=== PATIENT | female | born 1985 | race Asian ===

== ENCOUNTER 2024-10-17 09:44 | Outpatient (AMB) | payer BC, SELFPAY ==
--- NOTE | 2024-10-17 09:50 | GYNCLNT_ITS ---
Vital Signs 10/17/24 09:51 Height 1.55 m Height Method Stated Weight 70.023 kg Weight Measurement Method Standing Scale BMI 29.1 BP 118/79 Blood Pressure Source Automatic Cuff Blood Pressure Location Left Upper Arm Position Sitting Respiration 12 Pulse 65 Pulse Source Monitor Temp 97.5 F Temp Source Oral Pulse Oximetry (%) 98 Oxygen Delivery Method Room Air Allergies/Home Meds Allergies & Medications Allergies acetaminophen Adverse Reaction (Intermediate, Verified 10/17/24 09:53) HIVES hydrocodone Adverse Reaction (Intermediate, Verified 10/17/24 09:53) HIVES Penicillins Adverse Reaction (Intermediate, Verified 10/17/24 09:53) Swelling Medication Reconciliation No Known Home Medications 10/17/24 [History Confirmed 10/17/24] Intake Visit Data Collection New Patient or Established: Established Patient (seen at [facility] within 3 years) Reason for Visit:: Well woman exam Seen by Clinical Staff ONLY (RN/MA): No Linen Tech Required: No Do You Feel Safe at Home: Yes Authorities Contacted: N/A PCP or OBGYN visit in last 3 months: No Hx Now: No Are you currently on any form of Control: Yes Pain Present Currently: No Pain Scale Used: Howard-Jean/Numerical Pain scale:: 0 Smoking Status Smoking Status: Never smoker Questionnaires Covid-19 Vaccine Questionnaire Has patient been vacinated for Covid-19 Have you been vacinated for Covid-19: Yes Date of last Covid Vaccine or Booster?: 07/22/20 PHQ-9 PHQ-2 Over the last 2 weeks, how often have you been bothered by any of the following problems? 1. Little interest or pleasure in doing things: not at all 2. Feeling down, depressed, or hopeless: not at all Total score: 0 Depression screen completed yes Social History Living Situation History Marital Status: Lives With: Family Housing: House Tobacco History Smoking Status: Never smoker Alcohol History Alcohol Intake: Never Substance Use History Substance Use: no Domestic Abuse History Do You Feel Safe at Home: Yes Past Medical History Past Medical History Have you ever been diagnosed with any of the following: Neurological Problems Cerebrovascular Accident (CVA): No Transient Ischemic Attacks (TIA): No Cardiology Problems Myocardial Infarction: No Cardiac Arrhythmia: No Respiratory Problems Chronic Obstructive Pulmonary Disease (COPD): No Asthma: No Stomache/Intestinal Problems Liver Cancer: No Hepatitis: No Genital/Urinary Problems Chronic Kidney Disease: No Renal Disease: No Kidney Stones: No Reproductive Problems Breast Cancer: No Endometriosis: No Musculoskeletal Problems Muscular Dystrophy: No Myasthenia Gravis: No Head,Eye,Nose,Throat Problems Cataracts: No Glaucoma: No Endocrine Problems Diabetes Mellitus Type 1: No Diabetes Mellitus Type 2: No Hypoglycemia: No [place]'s Syndrome: No [place]'s Disease: No Hyperthyroidism: No Hypothyroidism: No Thyroid Cancer: No Parathyroid Disease: No Pituitary Disease: No Systemic Lupus Erythematosus: No Syndrome of Inappropriate Antidiuretic Hormone: No Adrenal Disease: No Graves' Disease: No Blood Problems Anemia: No Leukemia: No Hemophilia: No Psychologic Problems Schizophrenia: No Recreational Drug Use: No Bipolar Disorder: No Depression: No Anxiety: No Behavior Problems: No Self-Mutilation: No Other Problems Hospitalization: No Autoimmune Disease: No Down Syndrome: No Autism: No Developmental Delay: No Surgical History Angioplasty: No Appendectomy: No Bariatric Surgery: No History of Present Illness HPI Narrative The patient is a 38-year-old -0-0-3 who is . She presents for a well woman exam. She has an IUD in place for 5 to 6 years. It is a Mirena. She was wondering if she needs it changed out. She reports some spotting on her IUD no pain. No gynecological complaints today. She is due for for screening mammogram. Her mother had uterine cancer and her father had congestive heart failure. He at age 71. Patient's parents both have diabetes she also needs screening lab work today. Patient will be due for an IUD change 7 to 8 years from when her IUD was placed. She reminds me this was quite painful for her to be put in so she does not want to change it out unless she needs to. She does not desire future pregnancies. She states her at this point is unwilling to pursue vasectomy. She used to see me at [facility] [facility] [facility] and will release her medical records. Review of Systems Review of Systems Systems Reviewed: All systems reviewed, normal except as documented Constitutional Constitutional: Reports as per HPI Comments: Occasional spotting with her IUD. No abnormal discharge. No dyspareunia. No hot flashes no night sweats. No urinary complaints. Exam General Limitations: no limitations General Appearance: alert, in no apparent distress, comfortable, cooperative, healthy appearing and well groomed Neck Neck exam: Present normal inspection Card Cardiovascular exam: Present regular rate and normal rhythm Abdominal Abdominal exam: Present soft Rectal Rectal exam: Present deferred External exam: Present normal external exam Speculum exam: Present normal speculum exam and other (To Mirena IUD strings are seen about half an inch outside her ectocervical os. No abnormal discharge no odor cervix appears grossly normal) Bimanual exam: Present normal bimanual exam Extremities Extremities exam: Present normal inspection Assessment & Plan Additional Assessment 38-year-old -0-0-3 for an annual exam. Patient is doing quite well. Screening lab work including cholesterol CBC comprehensive metabolic panel hemoglobin A1c were ordered. Patient is reassured her IUD can stay in place 2 to 3 years. Additional Plan Pap with high risk HPV was performed. Mammogram was ordered. Screening lab work was ordered. Patient will eat will release her medical records from [facility] [facility]. Her IUD can stay in place for 2-3 more years. She is to call with any bleeding or abnormal discharge or pain otherwise she will follow-up yearly. Follow Up: 1 Year (Call for appointment) Office Procedures OB Clinic LOC & Office Proc's Nursing/Assessment Patient Status: Established Patient OB Clinic Nursing Assessment: Medication Reconciliation, Update PMH in EMR and Vital Signs OB Clinic Coordination of Care: Complex Care and Chronic Disease 1-5, Consent,records obtained, informed consent, Education Simp Pt/Fam, Lab and Imaging orders and Staff clarify orders Miscellaneous Interventions: Pelvic/Pap Smear Set up Established Patient Charge Established Patient Point Assignment: 120 Established Patient Point Charge: EP Level 4 (120-155) [employer]: Papsmear Pap Smear Procedure Chaparone in room during procedure?: No Pre-op diagnosis general: Annual screening Pap smear with reflex HPV performed. Post-op diagnosis procedure note: Same Papsmear completed: yes
[2024-10-17 09:51] VITALS: BP 118/79; PULSE 65; RESP 12; TEMP 36.4; O2SAT 98; BMI 29.1
== END 2024-10-17 10:19 | disposition home or self-care (01) ==
LOC: HODSOBC 09:44
PROVIDERS: PCP Family Medicine; Supervising Provider Obstetrics & Gynecology; Visit Provider Obstetrics & Gynecology
DX: Z01.419 Encounter for gynecological examination (general) (routine) without abnormal findings (principal); Z97.5 Presence of (intrauterine) contraceptive device
CPT/HCPCS: 99213; 99214; Q0091; G0463

== ENCOUNTER → 2024-10-29 | Outpatient (CLI) | payer BC, SELFPAY ==
[2024-10-29 14:26] LABS: Basophils % (Auto) 0 % (0-2.5); Eosinophils # (Auto) 0.1 Thou/mm3 (0.0-0.5); Eosinophils % (Auto) 1 % (0-10); Hematocrit 39.1 % (36.0-46.0); Hemoglobin 13.7 g/dL (12.0-16.0); Immature Granulocytes % (Auto) 0 % (0-0); Immature Granulocytes Auto 0.02 Thou/mm3 (0.00-0.00); Lymphocytes # (Auto) 2.1 Thou/mm3 (1.0-4.8); Lymphocytes % (Auto) 31 % (10-50); Mean Corpuscular Hemoglobin 33.4 pg (25.0-35.0); Mean Corpuscular Volume 95 fL (80-100); Monocytes # (Auto) 0.4 Thou/mm3 (0.0-0.8); Monocytes % (Auto) 6 % (0-12); Neutrophils # (Auto) 4.1 Thou/mm3 (1.8-7.7); Neutrophils % (Auto) 61 % (37-80); Nucleated Red Blood Cell % 0 /100 WBC (0); Platelet Count 249 Thou/mm3 (140-440); RDW Standard Deviation 43.6 fL (36.4-46.3); White Blood Count 6.7 Thou/mm3 (3.6-11.0)
[2024-10-29 15:01] LABS: Alanine Aminotransferase 20 U/L (10-49); Albumin, Serum 4.4 gm/dL (3.5-5.0); Albumin/Globulin Ratio 1.9 (1.2-2.2); Anion Gap 7 (7-16); Aspartate Amino Transferase 17 U/L (0-34); BUN/Creatinine Ratio 13 Ratio (12-20); Bilirubin,Total 0.5 mg/dL (0.3-1.2); Blood Urea Nitrogen 10 mg/dL (9-23); Calcium 9.3 mg/dL (8.3-10.6); Calcium (Corrected) 9.3 mg/dL (8.5-10.1); Carbon Dioxide 29.2 mMol/L (20.0-31.0); Cardiac Risk Estimate 4.5 RATIO (3.7-5.6); Chloride 105 mMol/L (98-107); Cholesterol 227 mg/dL (132-200); Creatinine (Component) 0.8 mg/dL (0.6-1.3); Globulin 2.3 gm/dL (2.3-3.5); Glucose 90 mg/dL (74-106); HDL Cholesterol 50 mg/dL (40-60); LDL Cholesterol,Calculated 134 mg/dL (0-130); Osmolality,Calculated 280 (275-295); Potassium 4.2 mMol/L (3.4-5.1); Sodium 141 mMol/L (136-145); Total Protein 6.7 gm/dL (5.7-8.2); Triglycerides 215 mg/dL (30-150); eGFR > 60 See Note
[2024-10-29 15:12] LABS: Alkaline Phosphatase 55 U/L (46-116)
[2024-10-29 16:00] LABS: Glucose Estimated Average 100 mg/dL (80-131); Hemoglobin A1C 5.1 % Hgb (4.8-6.0)
== END | disposition home or self-care (01) ==
LOC: COPL 12:57
PROVIDERS: PCP Family Medicine; Referring Provider Obstetrics & Gynecology; Visit Provider Obstetrics & Gynecology
DX: Z00.00 Encounter for general adult medical examination without abnormal findings (principal)
CPT/HCPCS: 36415; 80053; 80061; 83036; 85025

== ENCOUNTER → 2025-01-23 | Outpatient (CLI) | payer BC, SELFPAY ==
--- NOTE | 2025-01-23 14:45 | XR_ITS ---
Examination: Screening digital mammography, bilateral Computer aided detection 3-D breast Tomosynthesis, bilateral Date and time of exam: January 23, 2025 1445 hours Indication: Screening Technique: Nonmagnified MLO, CC views of the breasts to been obtained, reconstructed from 3-D Tomosynthesis images. R2 computer aided detection program utilized for evaluation of suspicious masses and/or abnormal calcifications. 3-D Tomosynthesis images obtained. Findings: The breasts are heterogeneously dense, which may obscure small masses Benign calcifications. No suspicious masses Impression: BI-RADS category II: Benign Findings. Recommend 1 year follow-up mammogram.
== END | disposition home or self-care (01) ==
PROVIDERS: PCP Family Medicine; Referring Provider Obstetrics & Gynecology; Visit Provider Obstetrics & Gynecology
DX: Z12.31 Encounter for screening mammogram for malignant neoplasm of breast (principal); R92.323 Mammographic fibroglandular density, bilateral breasts; R92.1 Mammographic calcification found on diagnostic imaging of breast
CPT/HCPCS: 77063; 77067

== ENCOUNTER → 2025-04-22 | Outpatient (CLI) | payer BC, SELFPAY ==
[2025-04-22 09:00] LABS: Misc Send Out* See Sep Rpt
[2025-04-22 10:49] LABS: Follicle Stimulating Hormone 10.39 mIU/mL (See Note)
[2025-04-30 22:04] LABS: Cardiolipin Ab (IgA) <2.0 APL-U/mL; Cardiolipin Ab (IgG) <2.0 GPL-U/mL; Sjogren's antibody (SS-A) >8.0 POS AI (<1.0 NEGATIVE); Sm Antibody <1.0 NEG AI (<1.0 NEGATIVE)
[2025-05-01 06:29] LABS: ANA Screen, IFA NEGATIVE (NEGATIVE); B2-Glycoprotein I Ab IgA <2.0 U/mL; B2-Glycoprotein I Ab IgG <2.0 U/mL; B2-Glycoprotein I Ab IgM <2.0 U/mL; CCP Antibody (IgG)* <16 Units; Cardiolipin Ab (IgM) <2.0 MPL-U/mL; Complement Component C3* 127 mg/dL (83-193); Complement Component C4c* 20 mg/dL (15-57); DHEA Sulfate* 116 mcg/dL (23-266); DNA (ds) Antibody* <1 IU/mL; Estradiol, Ultrasensitive* 56 pg/mL; Progesterone,LC/MS* <0.1 ng/mL; Scl-70 Antibody* <1.0 NEG AI (<1.0 NEGATIVE); Sex Hormone Binding Globulin* 15 nmol/L (17-124); Sjogren's Antibody (SS-B) <1.0 NEG AI (<1.0 NEGATIVE); Sm/RNP Antibody <1.0 NEG AI (<1.0 NEGATIVE); Testosterone, Free,Dialysis 1.5 pg/mL (0.1-6.4); Testosterone, Total, Dialysis 7 ng/dL (2-45); Thyroglobulin Antibodies* <1 IU/mL (< OR = 1); Thyroid Peroxidase Antibodies* <1 IU/mL (<9)
== END | disposition home or self-care (01) ==
LOC: COPL 08:20
PROVIDERS: PCP Nurse Practitioner Family; Referring Provider Nurse Practitioner Family; Visit Provider Nurse Practitioner Family
DX: R87.1 Abnormal level of hormones in specimens from female genital organs (principal); R76.0 Raised antibody titer
CPT/HCPCS: 36415; 82157; 82397; 82627; 82670; 83001; 84144; 84270; 84402; 84403; 86038; 86146; 86147; 86160; 86200; 86225; 86235; 86376; 86800

== ENCOUNTER → 2025-04-25 | Outpatient (CLI) | payer BC, SELFPAY ==
[2025-04-25 13:06] LABS: Glucose Estimated Average 111 mg/dL (80-131); Hemoglobin A1C 5.5 % Hgb (4.8-6.0)
[2025-04-25 13:18] LABS: Vitamin B12 551 pg/mL (211-911)
[2025-05-02 06:33] LABS: Vitamin B1 (Thiamine)* 6 nmol/L (8-30)
== END | disposition home or self-care (01) ==
LOC: COPL 12:10
PROVIDERS: PCP Family Medicine; Referring Provider Nurse Practitioner Family; Visit Provider Nurse Practitioner Family
DX: R20.2 Paresthesia of skin (principal)
CPT/HCPCS: 36415; 82607; 83036; 84425

== ENCOUNTER 2025-05-13 15:09 | Outpatient (AMB) | payer BC, SELFPAY ==
[2025-05-13 15:20] VITALS: BP 118/79; PULSE 67; RESP 14; TEMP 36.7; O2SAT 95; BMI 28.3
--- NOTE | 2025-05-13 15:20 | AMB.GYNCLNOT ---
Vital Signs 05/13/25 15:20 Height 1.55 m Height Method Stated Weight 68.096 kg Weight Measurement Method Standing Scale BMI 28.3 BP 118/79 Blood Pressure Source Automatic Cuff Blood Pressure Location Left Upper Arm Position Sitting Respiration 14 Pulse 67 Pulse Source Monitor Temp 98.1 F Temp Source Oral Pulse Oximetry (%) 95 Oxygen Delivery Method Room Air Allergies/Home Meds Allergies & Medications Allergies acetaminophen Adverse Reaction (Intermediate, Verified 05/13/25 15:28) HIVES hydrocodone Adverse Reaction (Intermediate, Verified 05/13/25 15:28) HIVES Penicillins Adverse Reaction (Intermediate, Verified 05/13/25 15:28) Swelling Medication Reconciliation No Known Home Medications 10/17/24 [History Confirmed 05/13/25] Intake Visit Data Collection New Patient or Established: Established Patient (seen at [facility] within 3 years) 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 Seen by Clinical Staff ONLY (RN/MA): No Adjuster Electrical Contacts Required: No Do You Feel Safe at Home: Yes Authorities Contacted: N/A PCP or OBGYN visit in last 3 months: Yes Hx Now: Yes Are you currently on any form of Control: No Pain Present Currently: No Pain Scale Used: Howard-Jean/Numerical Pain scale:: 0 Smoking Status Smoking Status: Never smoker 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 1. Little interest or pleasure in doing things: not at all 2. Feeling down, depressed, or hopeless: not at all Total score: 0 PHQ-9 3. Trouble falling or staying asleep, or sleeping too much: Not at all 4. Feeling tired or having little energy: Not at all 5. Poor appetite or overeating: Not at all 6. Feeling bad about yourself - or that you are a failure or have let yourself or your family down: Not at all 7. Trouble concentrating on things, such as reading the newspaper or watching television: Not at all 8. Moving or speaking so slowly that other people could have noticed? - Or the opposite - being so fidgety or restless that you have been moving around a lot more than usual: not at all 9. Thoughts that you would be better off or of hurting yourself in some way: Not at all Total score: 0 Source: Developed by Drs. Josh Lopez, Winsome Mcgovern, Johnnie Hinkle and colleagues, with an educational consuelo from [employer]. Depression screen completed yes Social History Living Situation History Marital Status: Lives With: Family Housing: House Housing Other:: Has 3 children ages 21,18 and 15. Works at [employer] Tobacco History Smoking Status: Never smoker Alcohol History Alcohol Intake: Never Substance Use History Substance Use: no Domestic Abuse History Do You Feel Safe at Home: Yes History of Present Illness HPI Narrative The patient is a 39 y/o who presents to discuss the sarah menopause. She states she is having hot flashes and night sweats. She denies vaginal dryness. She has an IUD in place, a Mirena, and it does not need to be replaced for 2 years. She has recently seen her primary care and a neurologist as she stated having R hand numbness that tingles and now goes up to her whole arm. It had progressed to both arms and how to both lower legs. No documented fevers. Neuro wants to r/o MS and they are authorizing for an MRI. Her markers for lupus are negative but pt may have Sjogrens. She was tested for a variety of conditions including Valley Fever, Lyme disease, West Nile, and all are negative. All her lab work was done at [facility] and is negative. She has a hx of early menopause in the family. Labs drawn 04/22 ordered by her primary care reveal a normal FSH, and Estradiol level Review of Systems Review of Systems Narrative Review of Systems: +Hot flashes, night sweats, +joint pain in multiple joints Exam General Limitations: no limitations General Appearance: alert, in no apparent distress, comfortable, cooperative, healthy appearing, well developed, well groomed and anxious Resp Respiratory exam: Present normal lung sounds bilaterally Card Cardiovascular exam: Present regular rate, normal rhythm and normal heart sounds Abdominal Abdominal exam: Present soft and normal bowel sounds Extremities Extremities exam: Present normal inspection and full ROM Neuro Neurological exam: Present alert, oriented X3 and CN II-XII intact Psych Psychiatric exam: Present normal affect and normal mood Skin Skin exam: Present warm, dry, intact and normal color Office Procedures OB Clinic LOC & Office Proc's Nursing/Assessment Patient Status: Established Patient OB Clinic Nursing Assessment: Medication Reconciliation, Update PMH in EMR and Vital Signs OB Clinic Coordination of Care: Complex Care and Chronic Disease 1-5, Consent,records obtained, informed consent, Education Simp Pt/Fam, Lab and Imaging orders, Results/Orders obtained and Staff clarify orders Established Patient Charge Established Patient Point Assignment: 105 Established Patient Point Charge: EP Level 3 (80-115) Assessment & Plan Diagnosis / Problem List (1) Sarah-menopause: Status: Acute Plan: We had a 20 minute face to face discussion about the sarah menopause. I reviewed all of her labs. I told her that she can have symptoms of the sarah menopause and her labs can still be normal. She has a IUD in place so I offered her low dose OCPS, oral estrogen or an estrogen patch. I told her sometimes in the menopause, women can have achy joints but not numbness and tingling and severe pain in both arms and legs, Pt wants to follow up with her Director Diversity and may consider adding hormones. She will call for follow up.
== END 2025-05-13 16:36 | disposition home or self-care (01) ==
LOC: HODSOBC 15:09
PROVIDERS: Supervising Provider Obstetrics & Gynecology; Visit Provider Obstetrics & Gynecology
DX: N95.1 Menopausal and female climacteric states (principal); R23.2 Flushing; R61 Generalized hyperhidrosis; M25.50 Pain in unspecified joint; Z97.5 Presence of (intrauterine) contraceptive device; Z88.6 Allergy status to analgesic agent; Z88.5 Allergy status to narcotic agent; Z88.0 Allergy status to penicillin
CPT/HCPCS: 99213; G0463

== ENCOUNTER → 2025-06-10 | Outpatient (CLI) | payer BC, SELFPAY ==
[2025-06-10 14:57] LABS: Anion Gap 9 (7-16); BUN/Creatinine Ratio 10 Ratio (12-20); Blood Urea Nitrogen 11 mg/dL (9-23); Calcium 10.1 mg/dL (8.3-10.6); Carbon Dioxide 29.9 mMol/L (20.0-31.0); Chloride 103 mMol/L (98-107); Creatinine (Component) 1.1 mg/dL (0.6-1.3); Glucose 114 mg/dL (74-106); Osmolality,Calculated 283 (275-295); Potassium 4.4 mMol/L (3.4-5.1); Sodium 142 mMol/L (136-145); eGFR > 60 See Note
== END | disposition home or self-care (01) ==
LOC: COPL 13:06
PROVIDERS: PCP Family Medicine; Referring Provider Internal Medicine; Visit Provider Internal Medicine
DX: Z01.89 Encounter for other specified special examinations (principal)
CPT/HCPCS: 36415; 80048

== ENCOUNTER → 2025-08-12 | Outpatient (CLI) | payer BC, SELFPAY ==
[2025-08-20 06:28] LABS: Immunoglobulin A 168 mg/dL (47-310); tTG Ab, IgA <1.0 U/mL
== END | disposition home or self-care (01) ==
LOC: COPL 14:50
PROVIDERS: PCP Family Medicine; Referring Provider Family Medicine; Visit Provider Family Medicine
DX: M35.06 Sjogren syndrome with peripheral nervous system involvement (principal); K90.0 Celiac disease
CPT/HCPCS: 36415; 82784; 86364